=== PATIENT | female | born 1940 | race Caucasian/White ===

== ENCOUNTER 2021-09-08 12:35 | Inpatient (IN) | payer MEDICARE, BC ==
[~2021-09-08] VITALS: Ht 162.6 cm; Wt 72.2 kg
[2021-09-08 13:48] LABS: Basophils # (auto) 0 10 ^3/uL (0-0.2); Basophils % (auto) 0.5 % (0.0-2.0); Eosinophils # (auto) 0.1 10 ^3/uL (0-0.8); Eosinophils % (auto) 0.8 % (0.0-7.0); Hematocrit 34.6 % (36.0-46.0); Hemoglobin 11.4 g/dL (12.2-16.2); Lymphocytes # (auto) 1.6 10 ^3/uL (0.4-5.4); Lymphocytes % (auto) 17.4 % (10.0-50.0); Mean Corpuscular Hemoglobin 29.1 pg (28.0-32.0); Mean Corpuscular Hgb Conc. 32.9 g/dL (32.0-36.0); Mean Corpuscular Volume 88.6 fL (80.0-100.0); Monocytes # (auto) 0.5 10 ^3/uL (0-1.3); Monocytes % (auto) 5.6 % (0.0-12.0); Neutrophils # (auto) 6.9 10 ^3/uL (1.6-8.6); Neutrophils % (auto) 75.7 % (37.0-80.0); Red Cell Distribution Width 15.1 % (11.8-14.3); White Blood Cell 9.1 10^3/uL (4.4-10.8)
[2021-09-08 13:58] LABS: Partial Thromboplastin Time 23.2 sec (23.6-33.0)
[2021-09-08 14:29] LABS: Potassium 3.6 mmol/L (3.5-5.1)
[2021-09-08 14:42] LABS: Bilirubin, Total 0.3 mg/dL (0.2-1.0); Calcium 8.7 mg/dL (8.5-10.1); Total Protein 6.4 g/dL (6.4-8.2)
[2021-09-08] MEDS ORDERED: NITROGLYCERIN 0.4 MG SL TAB SL PRN (22:15)
[2021-09-08] MEDS ORDERED: ONDANSETRON HCL 4 MG/2 ML VIAL IV PRN (22:15)
[2021-09-08] MEDS ORDERED: TEMAZEPAM 15 MG CAP PO PRN (22:15)
[2021-09-08] MEDS ORDERED: ACETAMINOPHEN 325 MG TAB PO PRN (22:15)
[2021-09-08] MEDS ORDERED: MORPHINE SULFATE INJECTION 2 MG/ML SYRG IV PRN (22:15)
[2021-09-08] MEDS ORDERED: DEXTROSE (50%) 50ML SYRG IV PRN (22:15)
[2021-09-08] MEDS ORDERED: ENOXAPARIN SOD 100 MG/1 ML SYRINGE SC ONE (22:45)
[2021-09-09] MEDS: ACCU-CHEK COMFORT CURVE STRIP VI SCH ×4 (06:34→21:38)
[2021-09-09] MEDS: InsuLIN REG 1unit/0.01ml Soln (100units/ml) SC SCH ×4 (06:39→22:03)
[2021-09-09] MEDS: LEVOTHYROXINE SODIUM 25 MCG TAB PO SCH (06:57)
[2021-09-09] MEDS: BENAZEPRIL HCL 10 MG TAB PO SCH (09:22)
[2021-09-09] MEDS: ASPirin 81 mg TAB PO SCH (09:22)
[2021-09-09] MEDS: HCTZ 25 MG TAB PO SCH (09:22)
[2021-09-09] MEDS ORDERED: PANTOPRAZOLE 40 MG TAB PO SCH (10:00)
[2021-09-09 10:51] LABS: Basophils # (auto) 0 10 ^3/uL (0-0.2); Basophils % (auto) 0.4 % (0.0-2.0); Eosinophils # (auto) 0 10 ^3/uL (0-0.8); Eosinophils % (auto) 0.5 % (0.0-7.0); Hematocrit 36.7 % (36.0-46.0); Lymphocytes % (auto) 17.9 % (10.0-50.0); Mean Corpuscular Hgb Conc. 32.8 g/dL (32.0-36.0); Mean Corpuscular Volume 88.3 fL (80.0-100.0); Monocytes # (auto) 0.8 10 ^3/uL (0-1.3); Monocytes % (auto) 7.8 % (0.0-12.0); Neutrophils % (auto) 73.4 % (37.0-80.0); Nucleated Red Blood Cells % 0.1 %; Red Blood Cells 4.15 10^6/uL (4.0-5.20); Red Cell Distribution Width 15.6 % (11.8-14.3); White Blood Cell 10.9 10^3/uL (4.4-10.8)
[2021-09-09] MEDS ORDERED: LORazepam 0.5 MG TAB PO ONE (11:00)
[2021-09-09 11:06] LABS: Albumin 3.1 g/dL (3.4-5.0); Calcium 8.8 mg/dL (8.5-10.1); Potassium 4.1 mmol/L (3.5-5.1)
[2021-09-09 11:10] LABS: BUN/Creatinine Ratio 33.7; Bilirubin, Total 0.5 mg/dL (0.2-1.0)
[2021-09-09] MEDS ORDERED: CLOPIDOGREL 300 MG TAB PO ONE (11:45)
[2021-09-09] MEDS ORDERED: ENOXAPARIN SOD 40 MG/0.4 ML SYRINGE SC ONE (11:45)
[2021-09-09 12:45] LABS: Cholesterol 119 mg/dL (< 200); HDL Cholesterol 69 mg/dL (40-59); LDL Cholesterol 42 mg/dL (< 100); Triglycerides 79 mg/dL (< 150)
[2021-09-09 16:25] VITALS: BP 105/62
[2021-09-09] MEDS: ATORVASTATIN 20 MG TAB PO SCH (21:36)
[2021-09-09] MEDS: ENOXAPARIN SOD 40 MG/0.4 ML SYRINGE SC SCH (21:37)
[2021-09-09 21:41] VITALS: BP 109/58
[2021-09-10] VITALS (8 sets, daily range): BP systolic 89–116; BP diastolic 51–72
[2021-09-10] MEDS: InsuLIN REG 1unit/0.01ml Soln (100units/ml) SC SCH ×4 (06:25→22:00)
[2021-09-10] MEDS: ACCU-CHEK COMFORT CURVE STRIP VI SCH ×4 (06:25→22:08)
[2021-09-10] MEDS: LEVOTHYROXINE SODIUM 25 MCG TAB PO SCH (06:56)
[2021-09-10] MEDS: BENAZEPRIL HCL 10 MG TAB PO SCH (10:00)
[2021-09-10] MEDS: ASPirin 81 mg TAB PO SCH (10:00)
[2021-09-10] MEDS: HCTZ 25 MG TAB PO SCH (10:00)
[2021-09-10] MEDS: ENOXAPARIN SOD 40 MG/0.4 ML SYRINGE SC SCH ×2 (10:00→22:08)
[2021-09-10] MEDS ORDERED: LIDOCAINE 2%HCL (LOCAL ANESTH.) INJ 20ML MDV ONE (10:34)
[2021-09-10] MEDS ORDERED: IODIXANOL 320MG/ML 100ML BTL IV ONE (10:34)
[2021-09-10] MEDS ORDERED: ANGIOMAX 250 MG VIAL IV ONE (10:40)
[2021-09-10] MEDS ORDERED: MIDAZOLAM HCL 2MG/2ML 2ml VIAL (1mg/ml) ONE (10:41)
[2021-09-10] MEDS ORDERED: SODIUM CHL 0.9% 0 ML ONE (10:41)
[2021-09-10] MEDS ORDERED: HEPARIN SODIUM (PORCINE) 5000 UNITS/ML 1ML VIAL ONE (10:41)
[2021-09-10] MEDS ORDERED: fentaNYL CITRATE 100 MCG/2 ML VL ONE (10:41)
[2021-09-10] MEDS ORDERED: VERAPAMIL 2.5MG/ML INJ 2ML VIAL IV ONE (10:41)
[2021-09-10] MEDS ORDERED: HYDR-4188 PO (22:02)
[2021-09-10] MEDS ORDERED: PRED2.5T4 PO (22:02)
[2021-09-10] MEDS: ATORVASTATIN 20 MG TAB PO SCH (22:07)
[2021-09-11] VITALS (7 sets, daily range): BP systolic 103–120; BP diastolic 63–76
[2021-09-11] MEDS: ACCU-CHEK COMFORT CURVE STRIP VI SCH ×4 (06:45→21:35)
[2021-09-11] MEDS: InsuLIN REG 1unit/0.01ml Soln (100units/ml) SC SCH ×4 (06:49→21:34)
[2021-09-11] MEDS: LEVOTHYROXINE SODIUM 25 MCG TAB PO SCH (06:51)
[2021-09-11] MEDS ORDERED: LACTULOSE 20Gm/30ML SOLN PO ONE (10:15)
[2021-09-11] MEDS: ASPirin 81 mg TAB PO SCH (10:35)
[2021-09-11] MEDS: HCTZ 25 MG TAB PO SCH (10:38)
[2021-09-11] MEDS: BENAZEPRIL HCL 10 MG TAB PO SCH (10:39)
[2021-09-11] MEDS: ENOXAPARIN SOD 40 MG/0.4 ML SYRINGE SC SCH ×2 (10:39→21:42)
[2021-09-11] MEDS: predniSONE 5 MG TAB PO SCH (10:40)
[2021-09-11] MEDS: hydrOXYchloroQUINE SULFATE 200 MG TAB PO SCH (10:40)
[2021-09-11] MEDS: ATORVASTATIN 20 MG TAB PO SCH (21:42)
[2021-09-12 05:00] VITALS: BP 112/60
[2021-09-12] MEDS ORDERED: METF-370 PO (05:51)
[2021-09-12] MEDS ORDERED: BENA10TA84 PO (05:51)
[2021-09-12] MEDS ORDERED: CYAN500L3 PO (05:58)
[2021-09-12] MEDS ORDERED: LANS30CA57 PO (05:58)
[2021-09-12] MEDS ORDERED: LOVA20TA4 PO (05:58)
[2021-09-12] MEDS ORDERED: ASPI-543 PO (05:58)
[2021-09-12] MEDS ORDERED: SPIR50TA2 PO (05:58)
[2021-09-12] MEDS ORDERED: BENA20TA PO (05:58)
[2021-09-12] MEDS ORDERED: SUCR1SUS5 PO (05:58)
[2021-09-12] MEDS ORDERED: LEVO50TA7 PO (05:58)
[2021-09-12] MEDS: ACCU-CHEK COMFORT CURVE STRIP VI SCH ×4 (06:31→22:08)
[2021-09-12] MEDS: LEVOTHYROXINE SODIUM 25 MCG TAB PO SCH (06:32)
[2021-09-12] MEDS: InsuLIN REG 1unit/0.01ml Soln (100units/ml) SC SCH ×4 (06:44→21:52)
[2021-09-12 09:15] VITALS: BP 95/60
[2021-09-12] MEDS: ASPirin 81 mg TAB PO SCH (10:44)
[2021-09-12] MEDS: ENOXAPARIN SOD 40 MG/0.4 ML SYRINGE SC SCH ×2 (10:45→22:07)
[2021-09-12] MEDS: HCTZ 25 MG TAB PO SCH (10:45)
[2021-09-12] MEDS: hydrOXYchloroQUINE SULFATE 200 MG TAB PO SCH (10:45)
[2021-09-12] MEDS: predniSONE 5 MG TAB PO SCH (10:45)
[2021-09-12] MEDS: BENAZEPRIL HCL 10 MG TAB PO SCH (10:46)
[2021-09-12 16:59] VITALS: BP 113/79
[2021-09-12 22:00] VITALS: BP 110/60
[2021-09-12] MEDS: ATORVASTATIN 20 MG TAB PO SCH (22:07)
[2021-09-13 05:00] VITALS: BP 111/57
[2021-09-13] MEDS: InsuLIN REG 1unit/0.01ml Soln (100units/ml) SC SCH ×4 (06:24→21:45)
[2021-09-13] MEDS: LEVOTHYROXINE SODIUM 25 MCG TAB PO SCH (06:29)
[2021-09-13] MEDS: ACCU-CHEK COMFORT CURVE STRIP VI SCH ×4 (07:00→21:44)
[2021-09-13 09:16] VITALS: BP 115/60
[2021-09-13] MEDS: ASPirin 81 mg TAB PO SCH (10:15)
[2021-09-13] MEDS: predniSONE 5 MG TAB PO SCH (10:15)
[2021-09-13] MEDS: CARVEDILOL 3.125 MG TAB PO SCH ×2 (10:16→21:34)
[2021-09-13] MEDS: SACUBITRIL-VALSARTAN 24mg/26mg TAB PO SCH ×2 (10:17→21:35)
[2021-09-13] MEDS: HCTZ 25 MG TAB PO SCH (10:17)
[2021-09-13] MEDS: ENOXAPARIN SOD 40 MG/0.4 ML SYRINGE SC SCH ×2 (10:18→21:43)
[2021-09-13] MEDS: hydrOXYchloroQUINE SULFATE 200 MG TAB PO SCH (12:15)
[2021-09-13 13:00] VITALS: BP 84/47
[2021-09-13] MEDS: ATORVASTATIN 20 MG TAB PO SCH (21:43)
[2021-09-13 22:00] VITALS: BP 99/63
[2021-09-14 05:00] VITALS: BP 101/70
[2021-09-14] MEDS: LEVOTHYROXINE SODIUM 25 MCG TAB PO SCH (06:04)
[2021-09-14] MEDS: InsuLIN REG 1unit/0.01ml Soln (100units/ml) SC SCH ×4 (06:05→22:00)
[2021-09-14] MEDS: ACCU-CHEK COMFORT CURVE STRIP VI SCH ×4 (07:00→22:13)
[2021-09-14 09:00] VITALS: BP 114/61
[2021-09-14] MEDS: HCTZ 25 MG TAB PO SCH (10:00)
[2021-09-14] MEDS: ASPirin 81 mg TAB PO SCH (10:34)
[2021-09-14] MEDS: predniSONE 5 MG TAB PO SCH (10:34)
[2021-09-14] MEDS: hydrOXYchloroQUINE SULFATE 200 MG TAB PO SCH (10:35)
[2021-09-14] MEDS: ENOXAPARIN SOD 40 MG/0.4 ML SYRINGE SC SCH ×2 (10:36→22:12)
[2021-09-14] MEDS: SACUBITRIL-VALSARTAN 24mg/26mg TAB PO SCH ×2 (10:37→22:12)
[2021-09-14] MEDS: CARVEDILOL 3.125 MG TAB PO SCH ×2 (10:38→22:12)
[2021-09-14] MEDS ORDERED: LACTULOSE 20Gm/30ML SOLN PO ONE (12:15)
[2021-09-14 13:00] VITALS: BP 115/64
[2021-09-14 17:00] VITALS: BP 105/66
[2021-09-14 22:00] VITALS: BP 121/70
[2021-09-14] MEDS: ATORVASTATIN 20 MG TAB PO SCH (22:13)
[2021-09-15 05:00] VITALS: BP 109/54
[2021-09-15] MEDS: InsuLIN REG 1unit/0.01ml Soln (100units/ml) SC SCH ×4 (06:07→22:55)
[2021-09-15] MEDS: LEVOTHYROXINE SODIUM 25 MCG TAB PO SCH (06:13)
[2021-09-15] MEDS: ACCU-CHEK COMFORT CURVE STRIP VI SCH ×4 (06:14→22:55)
[2021-09-15 08:00] VITALS: BP 97/57
[2021-09-15 09:00] VITALS: BP 97/57
[2021-09-15] MEDS: CARVEDILOL 3.125 MG TAB PO SCH ×2 (10:00→22:36)
[2021-09-15] MEDS: HCTZ 25 MG TAB PO SCH (10:00)
[2021-09-15] MEDS: SACUBITRIL-VALSARTAN 24mg/26mg TAB PO SCH ×2 (10:00→22:35)
[2021-09-15] MEDS: predniSONE 5 MG TAB PO SCH (10:35)
[2021-09-15] MEDS: ASPirin 81 mg TAB PO SCH (10:35)
[2021-09-15] MEDS: hydrOXYchloroQUINE SULFATE 200 MG TAB PO SCH (10:36)
[2021-09-15] MEDS: ENOXAPARIN SOD 40 MG/0.4 ML SYRINGE SC SCH ×2 (10:37→22:35)
[2021-09-15 13:00] VITALS: BP 107/68
[2021-09-15 17:25] VITALS: BP 148/77
[2021-09-15 22:00] VITALS: BP 116/63
[2021-09-15] MEDS: ATORVASTATIN 20 MG TAB PO SCH (22:35)
[2021-09-16 05:00] VITALS: BP 111/60
[2021-09-16] MEDS: LEVOTHYROXINE SODIUM 25 MCG TAB PO SCH (06:45)
[2021-09-16] MEDS: ACCU-CHEK COMFORT CURVE STRIP VI SCH ×2 (06:45→11:21)
[2021-09-16] MEDS: InsuLIN REG 1unit/0.01ml Soln (100units/ml) SC SCH ×2 (06:45→11:20)
[2021-09-16 09:00] VITALS: BP 108/56
[2021-09-16] MEDS: ENOXAPARIN SOD 40 MG/0.4 ML SYRINGE SC SCH (09:23)
[2021-09-16] MEDS: hydrOXYchloroQUINE SULFATE 200 MG TAB PO SCH (09:24)
[2021-09-16] MEDS: SACUBITRIL-VALSARTAN 24mg/26mg TAB PO SCH (09:25)
[2021-09-16] MEDS: ASPirin 81 mg TAB PO SCH (09:25)
[2021-09-16] MEDS: predniSONE 5 MG TAB PO SCH (09:26)
[2021-09-16] MEDS: HCTZ 25 MG TAB PO SCH (10:00)
[2021-09-16] MEDS: CARVEDILOL 3.125 MG TAB PO SCH (10:00)
[2021-09-16 13:00] VITALS: BP 112/58
== END 2021-09-16 14:10 | disposition home or self-care (01) | DRG 281 ==
LOC: EDUNIT# 12:35 → ER 12:35 → EDBD 12:35 → TELE 22:03 → TELE-CENTR 09-09 16:34
PROVIDERS: ADMIT Nurse Practitioner; ATTEND Family Medicine
PROC: 4A023N7 Measurement of Cardiac Sampling and Pressure, Left Heart, Percutaneous Approach (ICD-10-PCS; principal; 2021-09-10)
PROC: B211YZZ Fluoroscopy of Multiple Coronary Arteries using Other Contrast (ICD-10-PCS; 2021-09-10)
PROC: B215YZZ Fluoroscopy of Left Heart using Other Contrast (ICD-10-PCS; 2021-09-10)
DX: I21.4 Non-ST elevation (NSTEMI) myocardial infarction (principal); I47.2 Ventricular tachycardia; I42.8 Other cardiomyopathies; I50.20 Unspecified systolic (congestive) heart failure; E11.9 Type 2 diabetes mellitus without complications; E03.9 Hypothyroidism, unspecified; E78.00 Pure hypercholesterolemia, unspecified; E78.5 Hyperlipidemia, unspecified; I25.10 Atherosclerotic heart disease of native coronary artery without angina pectoris; I49.3 Ventricular premature depolarization; K22.2 Esophageal obstruction; I11.0 Hypertensive heart disease with heart failure; Z20.822 Contact with and (suspected) exposure to COVID-19
CPT/HCPCS: 36415; 71045; 80053; 80061; 82962; 84484; 85025; 85610; 85730; 87426; 93005; 93306; 93458; 96372; G0378; J1815; J2250; Q9967